=== PATIENT | male | born 1995 | race Caucasian/White ===

== ENCOUNTER 2017-10-12 19:40 | Emergency (ER) | payer MEDICAID, OTHER ==
[~2017-10-12] VITALS: Ht 180.3 cm; Wt 95.0 kg
[2017-10-12] MEDS ORDERED: LIDOCAINE HCL 1% 20ML VIAL (Pyxis) INJ MC ONE (20:45)
[2017-10-12] MEDS ORDERED: ACETAMINOPHEN WITH CODEINE 300/30MG TABLET PO ONE (20:45)
[2017-10-12] MEDS ORDERED: TETANUS, DIPHTHERIA, PERTUSSIS VAC/PF 0.5ML (>7YR OLD) IM ONE (20:45)
[2017-10-12 23:00] VITALS: BP 122/66
== END 2017-10-12 23:00 | disposition home or self-care (01) ==
LOC: ER 19:48
DX: S51.011A Laceration without foreign body of right elbow, initial encounter (principal); W25.XXXA Contact with sharp glass, initial encounter; Y93.89 Activity, other specified; Y92.89 Other specified places as the place of occurrence of the external cause; Y99.8 Other external cause status
CPT/HCPCS: 12002; 73080; 90471; 90715; 99284; A4217; J3490; Z7610

== ENCOUNTER 2017-10-24 15:05 | Emergency (ER) | payer MEDICAID ==
[~2017-10-24] VITALS: Ht 180.3 cm; Wt 95.0 kg
[2017-10-24 15:23] VITALS: BP 130/61
== END 2017-10-24 16:23 | disposition home or self-care (01) ==
LOC: ER 15:28
DX: S51.011D Laceration without foreign body of right elbow, subsequent encounter (principal); F12.10 Cannabis abuse, uncomplicated; X58.XXXD Exposure to other specified factors, subsequent encounter
CPT/HCPCS: 99281; Z7610

== ENCOUNTER 2017-11-08 14:43 | Emergency (ER) | payer MEDICAID ==
[~2017-11-08] VITALS: Ht 180.3 cm; Wt 101.0 kg
[2017-11-08 18:47] VITALS: BP 119/42
[2017-11-08] MEDS: IBUPROFEN 600MG TABLET PO ONE (18:47)
[2017-11-08] MEDS ORDERED: ONDANSETRON 4MG ODT ONE (21:04)
[2017-11-08 21:14] LABS: BASOPHILS % 0.8 % (0.0-2.0); EOSINOPHILS % 2.9 % (0.0-5.0); HEMOGLOBIN. 14.6 g/dL (14.0-18.0); LYMPHOCYTES % 31.8 % (20.0-50.0); MEAN CORPUSCULAR HEMOGLOBIN 30.9 pg (28.0-32.0); MEAN CORPUSCULAR VOLUME 91.2 fL (80.0-94.0); MEAN PLATELET VOLUME 7.7 fl (7.4-10.4); MONOCYTES % 6.1 % (2.0-8.0); NEUTROPHILS % 58.4 % (40.0-76.0); PLATELET 283 x1000/uL (130-400); RED BLOOD CELL COUNT 4.71 mill/uL (4.7-6.1); RED CELL DISTRIBUTION WIDTH 12.9 % (11.6-14.6)
[2017-11-08 21:32] LABS: CHLORIDE 105 mEq/L (98-107)
[2017-11-08] MEDS: ONDANSETRON 4MG ODT PO ONE (21:33)
[2017-11-08 21:36] LABS: CARBON DIOXIDE 28 mEq/L (21-32)
== END 2017-11-08 21:52 | disposition home or self-care (01) ==
LOC: ER 15:56
DX: S50.01XA Contusion of right elbow, initial encounter (principal); F17.200 Nicotine dependence, unspecified, uncomplicated; F12.10 Cannabis abuse, uncomplicated; V19.9XXA Pedal cyclist (driver) (passenger) injured in unspecified traffic accident, initial encounter; Y93.55 Activity, bike riding; Y92.89 Other specified places as the place of occurrence of the external cause; Y99.8 Other external cause status
CPT/HCPCS: 36415; 73060; 73070; 80048; 85025; 93971; 99285; Q0162

== ENCOUNTER 2018-02-22 09:51 | Emergency (ER) | payer MEDICAID ==
[~2018-02-22] VITALS: Ht 180.3 cm; Wt 102.0 kg
[2018-02-22] MEDS ORDERED: IBUPROFEN 600MG TABLET PO ONE (10:15)
[2018-02-22 11:14] VITALS: BP 128/61
== END 2018-02-22 11:15 | disposition home or self-care (01) ==
LOC: ER 10:29
DX: J06.9 Acute upper respiratory infection, unspecified (principal); F17.200 Nicotine dependence, unspecified, uncomplicated
CPT/HCPCS: 71045; 93005; 99284

== ENCOUNTER 2018-02-23 10:23 | Emergency (ER) | payer MEDICAID ==
[~2018-02-23] VITALS: Ht 180.3 cm; Wt 102.0 kg
[2018-02-23 10:36] VITALS: BP 137/75
== END 2018-02-23 10:47 | disposition home or self-care (01) ==
LOC: ER 10:37
DX: Z02.89 Encounter for other administrative examinations (principal); F17.200 Nicotine dependence, unspecified, uncomplicated
CPT/HCPCS: 99281

== ENCOUNTER 2018-03-24 17:01 | Emergency (ER) | payer MEDICAID ==
[~2018-03-24] VITALS: Ht 170.2 cm; Wt 112.0 kg
[2018-03-24 17:32] VITALS: BP 129/51
== END 2018-03-24 17:58 | disposition home or self-care (01) ==
LOC: ER 17:01
DX: J30.2 Other seasonal allergic rhinitis (principal)
CPT/HCPCS: 99281

== ENCOUNTER 2018-08-17 23:33 | Emergency (ER) | payer MEDICAID ==
[~2018-08-17] VITALS: Ht 182.9 cm; Wt 103.0 kg
[2018-08-17] MEDS ORDERED: HALOPERIDOL LACTATE 5MG/ML VIAL IM STA (23:56)
[2018-08-17] MEDS ORDERED: LORAZEPAM 2MG/ML CPJ IM STA (23:56)
[2018-08-17] MEDS ORDERED: SODIUM CHLORIDE 0.9% 1,000 ML IV ONE (23:56)
[2018-08-18 01:08] LABS: BASOPHILS % 0.2 % (0.0-2.0); EOSINOPHILS % 1.3 % (0.0-5.0); HEMATOCRIT. 43.4 % (42.0-52.0); HEMOGLOBIN. 14.7 g/dL (14.0-18.0); LYMPHOCYTES % 34.7 % (20.0-50.0); MEAN CORPUSCULAR HEMOGLOBIN 30.6 pg (28.0-32.0); MEAN CORPUSCULAR VOLUME 90.2 fL (80.0-94.0); MEAN PLATELET VOLUME 7.8 fl (7.4-10.4); MONOCYTES % 4.8 % (2.0-8.0); PLATELET 257 x1000/uL (130-400); RED BLOOD CELL COUNT 4.81 mill/uL (4.7-6.1); RED CELL DISTRIBUTION WIDTH 12.6 % (11.6-14.6)
[2018-08-18 01:09] LABS: CHLORIDE 105 mEq/L (98-107)
[2018-08-18 01:13] LABS: ETHANOL BLOOD 248 mg/dL
[2018-08-18 01:18] LABS: CREATINE KINASE 345 IU/L (39-308)
[2018-08-18 01:23] LABS: CLARITY URINE CLEAR (CLEAR); COLOR URINE YELLOW (YELLOW); KETONES URINE NEGATIVE (NEGATIVE); LEUKOCYTE ESTERASE URINE NEGATIVE (NEGATIVE); NITRITE URINE NEGATIVE (NEGATIVE); OCCULT BLOOD URINE NEGATIVE (NEGATIVE); PROTEIN URINE NEGATIVE (NEGATIVE); UROBILINOGEN URINE 0.2 E.U./dL (0.2-1.0)
[2018-08-18 01:41] LABS: *AMPHETAMINES SCREEN URINE NEGATIVE (NEGATIVE); *BARBITURATES SCREEN URINE NEGATIVE (NEGATIVE); *BENZODIAZEPINES SCREEN URINE PRESUMTIVE POSITIVE (NEGATIVE); *COCAINE SCREEN URINE NEGATIVE (NEGATIVE); METHADONE URINE SCREEN NEGATIVE (NEGATIVE)
[2018-08-18 01:42] LABS: CANNABINOID URINE SCREEN NEGATIVE (NEGATIVE); OPIATES URINE SCREEN NEGATIVE (NEGATIVE); PHENCYCLIDINE URINE SCREEN NEGATIVE (NEGATIVE)
[2018-08-18] MEDS ORDERED: SODIUM CHLORIDE 0.9% 1,000 ML IV ONE (03:55)
[2018-08-18] MEDS ORDERED: LORAZEPAM 2MG/ML CPJ IV ONE (04:00)
[2018-08-18 08:24] VITALS: BP 133/76
== END 2018-08-18 08:33 | disposition home or self-care (01) ==
LOC: ER 23:44
DX: T51.0X1A Toxic effect of ethanol, accidental (unintentional), initial encounter (principal); R41.82 Altered mental status, unspecified; F15.10 Other stimulant abuse, uncomplicated; Z78.1 Physical restraint status; Y92.89 Other specified places as the place of occurrence of the external cause; Y90.8 Blood alcohol level of 240 mg/100 ml or more
CPT/HCPCS: 36415; 80053; 80305; 80307; 80329; 81003; 82550; 85025; 96361; 96372; 96374; 99284; G0482; J1630; J2060; J7030

== ENCOUNTER 2019-01-22 20:39 | Emergency (ER) | payer MEDICAID ==
[~2019-01-22] VITALS: Ht 180.3 cm; Wt 105.0 kg
[2019-01-23 02:05] LABS: BASOPHILS % 0.5 % (0.0-2.0); EOSINOPHILS % 2.2 % (0.0-5.0); HEMATOCRIT. 43.3 % (42.0-52.0); HEMOGLOBIN. 14.7 g/dL (14.0-18.0); LYMPHOCYTES % 39.2 % (20.0-50.0); MEAN CORPUSCULAR HEMOGLOBIN 30.4 pg (28.0-32.0); MEAN CORPUSCULAR VOLUME 89.3 fL (80.0-94.0); MEAN PLATELET VOLUME 7.7 fl (7.4-10.4); MONOCYTES % 6.6 % (2.0-8.0); NEUTROPHILS % 51.5 % (40.0-76.0); PLATELET 300 x1000/uL (130-400); RED BLOOD CELL COUNT 4.85 mill/uL (4.7-6.1); RED CELL DISTRIBUTION WIDTH 12.5 % (11.6-14.6)
[2019-01-23 02:11] LABS: PROTHROMBIN TIME 10.4 sec (9.1-11.1)
[2019-01-23 02:41] VITALS: BP 129/90
== END 2019-01-23 02:42 | disposition home or self-care (01) ==
LOC: ER 20:39
DX: R04.0 Epistaxis (principal); F12.10 Cannabis abuse, uncomplicated; F17.210 Nicotine dependence, cigarettes, uncomplicated
CPT/HCPCS: 36415; 99283

== ENCOUNTER 2020-01-27 20:39 | Emergency (ER) | payer MEDICAID, OTHER | END 2020-01-27 21:31 | disposition left against medical advice (07) | LOC: ER 20:39 | DX: R68.89 Other general symptoms and signs (principal); Z53.21 Procedure and treatment not carried out due to patient leaving prior to being seen by health care provider ==